=== PATIENT | male | born 1960 | race African-American/Black ===

== ENCOUNTER 2024-12-26 06:24 | Day surgery (SDC) | payer MEDICARE ==
[2024-12-26] VITALS (12 sets, daily range): BP systolic 116–148; BP diastolic 57–77; PULSE 51–82; RESP 15–20; TEMP 97.2–97.6
[~2024-12-26] VITALS: Ht 175.3 cm; Wt 86.9 kg
[~2024-12-26 06:24] MED LIST: LOSA50TA64 PO
[2024-12-26] MEDS ORDERED: CETI10TA87 PO (07:40)
[2024-12-26] MEDS ORDERED: TAMS-1 PO (07:40)
[2024-12-26] MEDS ORDERED: CLON1TAB23 PO (07:40)
[2024-12-26] MEDS ORDERED: LACT-441 PO (07:40)
[2024-12-26] MEDS ORDERED: URSO500T10 PO (07:40)
[2024-12-26] MEDS ORDERED: BISA-151 PO (07:40)
[2024-12-26] MEDS ORDERED: OLAN5TAB76 PO (07:40)
[2024-12-26] MEDS ORDERED: COGENTIN PO (07:40)
[2024-12-26] MEDS ORDERED: CITA-107 PO (07:40)
[2024-12-26] MEDS ORDERED: RISP3TAB44 PO (07:40)
[2024-12-26] MEDS ORDERED: OMEG100033 PO (07:40)
[2024-12-26] MEDS ORDERED: DIVA500T52 PO (07:40)
[2024-12-26] MEDS ORDERED: ESOM20CA31 PO (07:40)
[2024-12-26] MEDS ORDERED: LINA5TAB PO (07:40)
[2024-12-26] MEDS ORDERED: INSU100I24 SQ (07:40)
[2024-12-26] MEDS: 0.9%NACL 1000ML 1,000 ML IV ONE (08:10)
[2024-12-26] MEDS ORDERED: MIDAZOLAM HCL 1 MG/ML 2ML VIAL ONE (08:43)
[2024-12-26] MEDS ORDERED: proPOFol 10 MG/ML 20ML VIAL IV ONE ×2 (08:53)
[2024-12-26] MEDS ORDERED: LIDOCAINE PF 100MG/5ML (2%) SYRINGE 5ML ONE (08:57)
--- NOTE | 2024-12-26 10:17 | NUR ---
FULL AND COMPLETE DISCHARGE INSTRUCTIONS GIVEN TO PATIENT AND FAMILY BOTH VERBALLY AND IN WRITING. Manager Scheduling, Ann Marie VOICED UNDERSTANDING TO GI PROCEDURE PRECAUTIONS AND FOLLOW UP PIV REMOVED WITH CATHETER TIP INTACT. W/C WITH Manager Scheduling TO POV TO HOME.
== END 2024-12-26 10:10 | disposition home or self-care (01) ==
LOC: ENDO 06:24 → DAH 06:24 → ENDO 10:10
PROVIDERS: ATTEND Internal Medicine Gastroenterology
DX: R19.5 Other fecal abnormalities (principal); K59.00 Constipation, unspecified; K21.9 Gastro-esophageal reflux disease without esophagitis; K64.0 First degree hemorrhoids; K83.09 Other cholangitis; F79 Unspecified intellectual disabilities; E66.9 Obesity, unspecified; Z79.899 Other long term (current) drug therapy; Z86.0100 Personal history of colon polyps, unspecified; Z68.23 Body mass index [BMI] 23.0-23.9, adult; Z90.49 Acquired absence of other specified parts of digestive tract; Z87.898 Personal history of other specified conditions
CPT/HCPCS: 82948 ×2; 45378; J7030; J2003; J2250; J2704; A4620; A4215; J3490

== ENCOUNTER 2025-01-10 07:05 | Day surgery (SDC) | payer MEDICARE ==
[~2025-01-10] VITALS: Ht 180.3 cm; Wt 89.5 kg
[2025-01-10] VITALS (10 sets, daily range): BP systolic 112–137; BP diastolic 67–82; PULSE 71–95; RESP 15–17; TEMP 97–98.1
[~2025-01-10 07:05] MED LIST changes: +BISA-151 PO; +CETI10TA87 PO; +CITA-107 PO; +CLON1TAB23 PO; +COGENTIN PO; +DIVA500T52 PO; +ESOM20CA31 PO; +INSU100I24 SQ; +LACT-441 PO; +LINA5TAB PO; -LOSA50TA64 PO; +OLAN5TAB76 PO; +OMEG100033 PO; +RISP3TAB44 PO; +TAMS-1 PO; +URSO500T10 PO
[2025-01-10] MEDS ORDERED: [UNRECOGNIZED DRUG - OTHER] IV ONE (08:00)
[2025-01-10] MEDS ORDERED: DEXMEDETOMIDINE HCL IV ONE (08:00)
[2025-01-10] MEDS ORDERED: MIDAZOLAM HCL 1 MG/ML 2ML VIAL ONE (08:19)
[2025-01-10] MEDS ORDERED: dexmedeTOMIDine HCL 200 MCG/2 ML VIAL IV ONE ×2 (08:21→08:30)
[2025-01-10] MEDS: 0.9%NACL 1000ML 1,000 ML IV ONE (08:28)
[2025-01-10] MEDS ORDERED: proPOFol 10 MG/ML 20ML VIAL IV ONE (08:48)
[2025-01-10] MEDS ORDERED: LIDOCAINE HCL 400MG/20ML VIAL ONE (08:49)
[2025-01-10] MEDS ORDERED: [UNRECOGNIZED DRUG - CODE] OT (08:51)
--- NOTE | 2025-01-10 10:13 | NUR ---
Full and complete Discharge Instructions given to Patient and Asset Protection Specialist, Celi (Patient has IDD and requires an escort) both verbally and in writing.. All questions answered.Voiced understanding to GI procedure precautions and Follow Up. PIV removed with catheter tip intact. Denies c/o pain or discomfort. W/C to POV with Asset Protection SpecialistCeli back to [facility].
== END 2025-01-10 10:10 | disposition other institution (70) ==
LOC: ENDO 07:05 → DAH 07:05 → ENDO 10:10
PROVIDERS: ATTEND Internal Medicine Gastroenterology
DX: R19.5 Other fecal abnormalities (principal); K63.5 Polyp of colon; K64.1 Second degree hemorrhoids; K21.9 Gastro-esophageal reflux disease without esophagitis; K83.09 Other cholangitis; F79 Unspecified intellectual disabilities; Z86.0100 Personal history of colon polyps, unspecified; Z90.49 Acquired absence of other specified parts of digestive tract; Z79.4 Long term (current) use of insulin; Z79.899 Other long term (current) drug therapy; Z53.8 Procedure and treatment not carried out for other reasons
CPT/HCPCS: 45380; 82948 ×2; J3490 ×3; J7030 ×2; J2250; J2704; A4620; A4215 ×2; A4223; A4222; A4221; A4663; A4606